=== PATIENT | female | born 1995 | race Two or more races ===

== ENCOUNTER 2021-01-14 20:47 | Emergency (ER) | payer SELFPAY ==
[~2021-01-14] VITALS: Ht 160 cm; Wt 52.7 kg
[2021-01-14 20:52] VITALS: BP 119/78
[2021-01-14] MEDS ORDERED: LIDOCAINE-MPF 1%, 5ML INFIL ONE (21:00)
[2021-01-14] MEDS ORDERED: LIDOCAINE-MPF 1%, 5ML ONE (21:33)
[2021-01-14] MEDS ORDERED: BUPIVACAINE 0.25% ONE (21:47)
== END 2021-01-14 22:16 | disposition home or self-care (01) ==
LOC: ED 22:00
DX: S92.511A Displaced fracture of proximal phalanx of right lesser toe(s), initial encounter for closed fracture (principal); X58.XXXA Exposure to other specified factors, initial encounter; Y93.89 Activity, other specified; Y92.89 Other specified places as the place of occurrence of the external cause; Y99.8 Other external cause status
CPT/HCPCS: 28515; 99283; 99284